=== PATIENT | male | born 1935 | race Caucasian/White ===

== ENCOUNTER → 2018-04-10 | Outpatient (CLI) | payer OTHER ==
[~2018-04-10] MED LIST: IOPAMIDOL (ISOVUE 370) 100 ML BTL IV ONE
== END ==
LOC: CIMAGING 09:13
PROVIDERS: ATTEND Internal Medicine Cardiovascular Disease
DX: I71.4 Abdominal aortic aneurysm, without rupture (principal); I72.3 Aneurysm of iliac artery
CPT/HCPCS: 74175; Q9967

== ENCOUNTER 2018-10-07 10:40 | Inpatient (IN) | payer OTHER | END 2018-10-16 15:18 | LOC: F2W 10:40 → F3E 10-13 12:58 → F2N 10-08 13:43 ==